=== PATIENT | female | born 1990 | race Caucasian/White ===

== ENCOUNTER 2016-11-24 15:05 | Emergency (ER) | payer SELFPAY ==
[~2016-11-24] VITALS: Ht 175.3 cm; Wt 81.8 kg
[2016-11-24 15:06] VITALS: BP 131/83
[2016-11-24 16:03] LABS: BLOOD UREA NITROGEN 9 mg/dL (7-18)
[2016-11-24] MEDS ORDERED: IBUP100T6 PO (16:14)
[2016-11-24] MEDS ORDERED: CEFTRIAXONE 1,000 MG ONE (16:45)
[2016-11-24] MEDS ORDERED: CEFTRIAXONE 1,000 MG IM ONE (17:00)
== END 2016-11-24 17:13 | disposition home or self-care (01) ==
LOC: ED 15:35
DX: O23.12 Infections of bladder in pregnancy, second trimester (principal); Z3A.17 17 weeks gestation of pregnancy
CPT/HCPCS: 36415; 80048; 81001; 82040; 85025; 87077; 87086; 87186; 96372; 99284; J0696

== ENCOUNTER 2017-07-23 12:46 | Emergency (ER) | payer SELFPAY ==
[~2017-07-23] VITALS: Ht 175.3 cm; Wt 86.9 kg
[~2017-07-23 12:46] MED LIST: IBUP100T6 PO
[2017-07-23 13:12] VITALS: BP 138/85
[2017-07-23] MEDS ORDERED: MIRT15TA3 PO (14:51)
== END 2017-07-23 15:19 | disposition home or self-care (01) ==
LOC: ED 15:00
DX: S93.491A Sprain of other ligament of right ankle, initial encounter (principal); S63.637A Sprain of interphalangeal joint of left little finger, initial encounter; W01.0XXA Fall on same level from slipping, tripping and stumbling without subsequent striking against object, initial encounter; Y93.89 Activity, other specified; Y92.89 Other specified places as the place of occurrence of the external cause; Y99.8 Other external cause status
CPT/HCPCS: 99284

== ENCOUNTER 2018-03-24 20:50 | Emergency (ER) | payer MEDICAID, OTHER ==
[~2018-03-24] VITALS: Ht 175.3 cm; Wt 90.0 kg
[~2018-03-24 20:50] MED LIST changes: +MIRT15TA3 PO
[2018-03-24 21:07] VITALS: BP 118/76
[2018-03-24] MEDS ORDERED: PROPARACAINE OPHTH 0.5%, 15ML ONE ×2 (21:23→21:30)
[2018-03-24] MEDS ORDERED: TRAZ-136 PO (21:29)
[2018-03-24] MEDS ORDERED: ESCI20TA10 PO (21:29)
[2018-03-24] MEDS ORDERED: PROPARACAINE OPHTH 0.5%, 15ML EACHEYE ONE (21:30)
[2018-03-24] MEDS ORDERED: FLUORESCEIN/BENOXINATE 5 ML DROPS OP ONE (21:30)
== END 2018-03-24 21:57 | disposition home or self-care (01) ==
LOC: ED 21:56
DX: H10.023 Other mucopurulent conjunctivitis, bilateral (principal); F17.200 Nicotine dependence, unspecified, uncomplicated
CPT/HCPCS: 99283